=== PATIENT | female | born 1945 | race Caucasian/White ===

== ENCOUNTER → 2016-04-19 | Outpatient (CLI) | payer MEDICARE ==
[~2016-04-19] MED LIST: ALB0.5V; ALBU8.5H2 IH; ARFO15VI2 IH; LVF500T PO; TIOT18CA INH
[2016-04-19 12:03] VITALS: BP 169/87
--- NOTE | 2016-04-19 12:03 | Urgent Care T Sheet Gen (E) ---
Intake General Temperature (Fahrenheit): 98.3 Pulse: 82 Blood Pressure Systolic: 169 Blood Pressure Diastolic: 87 Respirations: 22 SPO2: 93 (normal for her) Description of Symptoms Patient presents with worsening breathing since yesterday. Patient is currently being seen by Dr Saeed in [place] for a bronchial infection. States she has been on Ethambutol, Azithromycin and Rifampin for the past 4 months. States her O2 saturation is usually 93-95%. Patient states that yesterday she was standing on a step stool when she fell, landing on her upper back/scapular region. Patient states it knocked the wind out of her. Didn't hit her head. No LOC. Since then, she states her lungs ache and it's hard for her to breath deeply. Been taking ibuprofen 400mg which helps. Also has a history of COPD for which she uses Tiova and ventolin. History of Present Illness Allergies: Coded Allergies: No Known Drug Allergies (Unverified , 05/14/12) Home Meds Reported Medications Arformoterol Tartrate (Brovana)15 Mcg/2 Ml Vial.neb15 Mcg IH BID 10/24/13 Albuterol Sulfate (Proair HFA)8.5 Gm Hfa.aer.ad2 Puff IH Q4H 05/15/12 Tiotropium [place] (Spiriva)18 Mcg Cap.w.dev18 Mcg INH HS 05/14/12 Respiratory Constitutional Symptoms: No syptoms reported EENTM: No symptoms reported Respiratory: Cough Short of breathNo Wheezing Cardiovascular: No symptoms reported All Other Systems Reviewed Remaining Systems: All other systems reviewed with negative findings Past [id number] Hx Immunizations Up to Date Date Pneumonia Vaccine Receive: Feb 17, 2012 Surgeries/Hospitalizations Hospitalization/Surgery Hx: No surgical HX Respiratory Respiratory History: COPD, SOB Cardiovascular Cardiovascular History: None Neuro/Muscular Neuro/Muscular History: Visual impairment Reproductive System Sexually Transmitted Diseases: No Genitouinary Genitourinary History: None Gastrointestinal GI/Endocrine History: Constipation, None Diabetes Diabetes: No HEENT Impaired Vision: Glasses Hearing Impaired: None Integumentary Integumentary History: None Cancer History of Cancer?: No Psychosocial Behavior Disorders: None Blood Transfusions Hx of Blood transfusions: No Reaction to blood transfusion: No Physical Exam Physical Exam General Appearance: WD/WN No apparent distress Eyes, Ears, Nose, Throat Ex: TMs normal Pharynx normal Neck Exam: SuppleNo Lymphadenopathy Respiratory Exam: RhonchiNo Wheezes Cardiovascular Exam: Regular rate, rhythm Skin Exam: Normal color Warm/dry/intact Comment examination of the upper back reveals no ecchymosis. thoracic spine, paraspinal muscles and scapular muscles are all normal without tenderness to palpation. intercostal muscles are also not tender to palpation. breath sounds are heard bilaterally. Departure Urgent Care Impression Impression: Primary Impression: Infectious disorder of bronchus Additional Impression: Inflammation of lung Departure Disposition: 01 HOME OR SELF-CARE Condition: Stable Referrals: NEVAEH MCDONALD MD (PCP) Additional Instructions: I believe the patient's worsened symptoms are related to lung inflammation from her fall yesterday. Her lungs are already infected and inflamed and "knocking the wind out of her" yesterday just made things worse. Due to her several antibiotics, I am somewhat limited on what I can do. I agree with use of ibuprofen for pain/inflammation. I suggested she increase the dose to 600mg q 6 hrs. Continue current medication regimen as prescribed May also use heating pad and topical analgesic as needed If breathing worsens, fever develops, or pain worsens, she is to present to the ER for further workup Patient understands DC instructions. All questions were answered. End of report . ELÍAS HOOPER Apr 19, 2016 12:03
== END ==
LOC: MHUC 11:27
PROVIDERS: ATTEND Physician Assistant
DX: J98.09 Other diseases of bronchus, not elsewhere classified (principal)
CPT/HCPCS: 99213